=== PATIENT | female | born 1975 | race Two or more races ===

== ENCOUNTER 2021-10-22 22:45 | Emergency (ER) | payer MEDICAID ==
[~2021-10-22] VITALS: Ht 160 cm; Wt 63.5 kg
[2021-10-22 22:46] VITALS: BP 179/72
== END 2021-10-23 00:43 | disposition home or self-care (01) ==
LOC: ER 22:48
DX: L53.9 Erythematous condition, unspecified (principal); Z88.0 Allergy status to penicillin

== ENCOUNTER 2021-10-26 18:10 | Emergency (ER) | payer MEDICAID ==
[~2021-10-26] VITALS: Ht 160 cm; Wt 63.5 kg
[2021-10-26] MEDS ORDERED: HYDR-4798 PO (19:32)
[2021-10-26 19:39] VITALS: BP 177/69
== END 2021-10-26 19:49 | disposition home or self-care (01) ==
LOC: ER 18:13
DX: B02.9 Zoster without complications (principal); E11.9 Type 2 diabetes mellitus without complications; I10 Essential (primary) hypertension; Z88.0 Allergy status to penicillin